=== PATIENT | male | born 1965 | race Two or more races ===

== ENCOUNTER 2016-10-28 12:54 | Observation (INO) | payer MEDICARE ==
[~2016-10-28] VITALS: Ht 182.9 cm; Wt 106.7 kg
[2016-10-28] MEDS ORDERED: CLONIDINE 0.1MG TABLET PO ONE (13:15)
[2016-10-28 13:29] LABS: BASOPHILS % 0.8 % (0.0-2.0); EOSINOPHILS % 1.7 % (0.0-5.0); HEMATOCRIT. 31.7 % (42.0-52.0); HEMOGLOBIN. 11.1 g/dL (14.0-18.0); MEAN CORPUSCULAR HEMOGLOBIN 28.7 pg (28.0-32.0); MEAN CORPUSCULAR VOLUME 81.9 fL (80.0-94.0); MEAN PLATELET VOLUME 6.9 fl (7.4-10.4); MONOCYTES % 8.8 % (2.0-8.0); NEUTROPHILS % 73.7 % (40.0-76.0); PLATELET 145 x1000/uL (130-400); RED BLOOD CELL COUNT 3.87 mill/uL (4.7-6.1); RED CELL DISTRIBUTION WIDTH 14.4 % (11.6-14.6)
[2016-10-28 13:36] LABS: PARTIAL THROMBOPLASTIN TIME 27.2 sec (23.4-31.0); PROTHROMBIN TIME 10.3 sec (9.4-11.6)
[2016-10-28 13:40] LABS: PHOSPHORUS 2.2 mg/dL (2.5-4.9)
[2016-10-28 13:45] LABS: TROPONIN I 0.04 ng/mL (0.00-0.04)
[2016-10-28 16:48] VITALS: BP 157/96
[2016-10-28 16:52] VITALS: BP 157/60
[2016-10-28] MEDS ORDERED: AMLO2.5T45 PO (17:28)
[2016-10-28] MEDS ORDERED: SEVE800T8 PO (17:28)
[2016-10-28] MEDS ORDERED: METO100T5 PO (17:28)
[2016-10-28] MEDS ORDERED: CLON0.1T PO (17:28)
[2016-10-28] MEDS ORDERED: BENA20TA3 PO (17:28)
[2016-10-28 18:00] VITALS: BP 133/80
[2016-10-28] MEDS ORDERED: LORAZEPAM 1MG TABLET PO SCH (18:45)
[2016-10-28] MEDS: ASPIRIN 81MG TABLET PO SCH (18:45)
[2016-10-28] MEDS ORDERED: CLONIDINE 0.1MG TABLET PO PRN (18:45)
[2016-10-28] MEDS ORDERED: DEXTROSE 50% WATER 50ML SYRINGE IV PRN (18:45)
[2016-10-28 20:00] VITALS: BP 166/89
[2016-10-28] MEDS: INSULIN LISPRO 100 UNITS/ML SUBCUT SCH (21:00)
[2016-10-28] MEDS: LISINOPRIL 20MG TABLET PO SCH (21:26)
[2016-10-28] MEDS: BLOOD SUGAR DIAGNOSTIC STRIP TEST SCH (21:27)
[2016-10-28 22:00] VITALS: BP 139/51
[2016-10-28] MEDS ORDERED: LORAZEPAM 2MG/ML CPJ IV PRN (23:00)
[2016-10-29] VITALS: BP 168/86
[2016-10-29 04:00] VITALS: BP 149/84
[2016-10-29] MEDS: BLOOD SUGAR DIAGNOSTIC STRIP TEST SCH ×3 (06:44→17:40)
[2016-10-29] MEDS: INSULIN LISPRO 100 UNITS/ML SUBCUT SCH ×3 (07:26→18:10)
[2016-10-29] MEDS: ASPIRIN 81MG TABLET PO SCH ×2 (08:27→09:00)
[2016-10-29] MEDS: LISINOPRIL 20MG TABLET PO SCH (08:27)
[2016-10-29 08:29] VITALS: BP 112/70
[2016-10-29] MEDS ORDERED: CALC-758 PO (08:58)
[2016-10-29] MEDS ORDERED: SEVELAMER CARBONATE 800 MG TABLET PO SCH ×2 (09:45→13:10)
[2016-10-29] MEDS: SEVELAMER CARBONATE 800 MG TABLET PO SCH ×3 (10:12→18:10)
[2016-10-29 12:00] VITALS: BP 141/83
[2016-10-29] MEDS ORDERED: LORAZEPAM 2MG/ML CPJ IV SCH (12:45)
[2016-10-29 16:00] VITALS: BP 167/84
[2016-10-29] MEDS ORDERED: MINOXIDIL 10MG TABLET PO SCH (21:00)
[2016-10-30] MEDS ORDERED: AMLODIPINE 2.5MG TABLET PO SCH (09:00)
== END 2016-10-29 18:15 | disposition home or self-care (01) ==
LOC: ER 14:07 → 3WST 14:35 → INTOOBSV 14:35 → EDBEDREQ 14:42 → ENRESERV 15:32 → 7WST 23:54
PROVIDERS: ADMIT Internal Medicine; ATTEND Internal Medicine
DX: R42 Dizziness and giddiness (principal); R53.1 Weakness; I13.11 Hypertensive heart and chronic kidney disease without heart failure, with stage 5 chronic kidney disease, or end stage renal disease; E11.22 Type 2 diabetes mellitus with diabetic chronic kidney disease; E78.00 Pure hypercholesterolemia, unspecified; N18.6 End stage renal disease; F41.9 Anxiety disorder, unspecified; F32.9 Major depressive disorder, single episode, unspecified; E87.8 Other disorders of electrolyte and fluid balance, not elsewhere classified; I51.7 Cardiomegaly; Z99.2 Dependence on renal dialysis; Z86.73 Personal history of transient ischemic attack (TIA), and cerebral infarction without residual deficits
CPT/HCPCS: 36415; 70450; 71010; 74181; 80048; 82962; 83735; 84100; 84484; 85025; 85610; 85730; 93005; 96374; 99291; G0378; J2060

== ENCOUNTER 2016-11-08 12:00 | Emergency (ER) | payer MEDICARE ==
[~2016-11-08] VITALS: Ht 177.8 cm; Wt 75.0 kg
[~2016-11-08 12:00] MED LIST: AMLO2.5T45 PO; BENA20TA3 PO; CALC-758 PO; CLON0.1T PO; METO100T5 PO; SEVE800T8 PO
[2016-11-08 12:50] LABS: BASOPHILS % 0.6 % (0.0-2.0); EOSINOPHILS % 1.3 % (0.0-5.0); HEMATOCRIT. 29.5 % (42.0-52.0); HEMOGLOBIN. 10.1 g/dL (14.0-18.0); LYMPHOCYTES % 14.9 % (20.0-50.0); MEAN CORPUSCULAR HEMOGLOBIN 28.9 pg (28.0-32.0); MEAN PLATELET VOLUME 6.4 fl (7.4-10.4); MONOCYTES % 6.4 % (2.0-8.0); NEUTROPHILS % 76.8 % (40.0-76.0); PLATELET 190 x1000/uL (130-400); RED BLOOD CELL COUNT 3.51 mill/uL (4.7-6.1); RED CELL DISTRIBUTION WIDTH 15.4 % (11.6-14.6)
[2016-11-08 13:04] LABS: PROTHROMBIN TIME 10.8 sec (9.4-11.6)
[2016-11-08 13:07] LABS: CARBON DIOXIDE 34 mEq/L (21-32); CHLORIDE 96 mEq/L (98-107)
[2016-11-08 15:07] VITALS: BP 178/95
== END 2016-11-08 15:08 | disposition home or self-care (01) ==
LOC: ER 12:13
DX: T82.838A Hemorrhage due to vascular prosthetic devices, implants and grafts, initial encounter (principal); E78.00 Pure hypercholesterolemia, unspecified; I13.11 Hypertensive heart and chronic kidney disease without heart failure, with stage 5 chronic kidney disease, or end stage renal disease; E11.22 Type 2 diabetes mellitus with diabetic chronic kidney disease; N18.6 End stage renal disease; Z86.73 Personal history of transient ischemic attack (TIA), and cerebral infarction without residual deficits; Z99.2 Dependence on renal dialysis
CPT/HCPCS: 36415; 80053; 85025; 85610; 86850; 86900; 99284

== ENCOUNTER 2017-05-16 14:16 | Emergency (ER) | payer MEDICARE ==
[~2017-05-16] VITALS: Ht 172.7 cm; Wt 93.0 kg
[~2017-05-16 14:16] MED LIST changes: +METO100T16 PO; -METO100T5 PO
[2017-05-16] MEDS ORDERED: SODIUM CHLORIDE 0.9% 1,000 ML IV ONE (14:57)
[2017-05-16 15:27] LABS: BASOPHILS % 0.8 % (0.0-2.0); EOSINOPHILS % 4.4 % (0.0-5.0); HEMATOCRIT. 33.1 % (42.0-52.0); HEMOGLOBIN. 11.3 g/dL (14.0-18.0); LYMPHOCYTES % 15.6 % (20.0-50.0); MEAN CORPUSCULAR HEMOGLOBIN 31.1 pg (28.0-32.0); MEAN CORPUSCULAR VOLUME 91.2 fL (80.0-94.0); MEAN PLATELET VOLUME 6.7 fl (7.4-10.4); MONOCYTES % 11.4 % (2.0-8.0); NEUTROPHILS % 67.8 % (40.0-76.0); PLATELET 191 x1000/uL (130-400); RED BLOOD CELL COUNT 3.63 mill/uL (4.7-6.1); RED CELL DISTRIBUTION WIDTH 14.7 % (11.6-14.6)
[2017-05-16 15:31] LABS: CHLORIDE 98 mEq/L (98-107)
[2017-05-16 15:33] LABS: INR 1.1; PROTHROMBIN TIME 11.1 sec (9.4-11.6)
[2017-05-16 17:48] VITALS: BP 108/60
== END 2017-05-16 18:17 | disposition home or self-care (01) ==
LOC: ER 14:16
DX: I95.9 Hypotension, unspecified (principal); E11.9 Type 2 diabetes mellitus without complications; R07.9 Chest pain, unspecified; Z99.2 Dependence on renal dialysis
CPT/HCPCS: 36415; 71045; 80053; 83605; 85025; 85610; 87040; 93005; 96360; 99285; J7030